=== PATIENT | male | born 1990 | race Hispanic/Latino ===

== ENCOUNTER 2022-05-31 01:29 | Emergency (ER) | payer SELFPAY ==
--- OUTSIDE RECORDS SUMMARY | 2022-05-31 01:32 | XMS REPORT | Continuity of Care Document ---
:1990 Author Organization [facility] t Address [address] [place] [address] Dr. Huerta [address] [place] [id number] Care Team Providers Name Role Phone BRENDA Attending Clinician Unavailable BRENDA Admitting Clinician Unavailable Problems This patient has no known problems. Allergies, Adverse Reactions, Alerts This patient has no known allergies or adverse reactions. Medications This patient has no known medications. Procedures This patient has no known procedures. Encounters Start End Encounter Admission Attending Care Care Encounter Source Date/Time Date/Time Type Type Clinicians Facility Department ID 2021-12-27 2021-12-27 Outpatient [facility] [id number] 02:17:00 02:17:00 _SAVANNAH [id number] [facility] Program Results This patient has no known results.
[2022-05-31] MEDS ORDERED: NA CHLORIDE 0.9% 1,000 ML ONE (01:49)
[2022-05-31] MEDS ORDERED: ASPIRIN EC 81 MG TAB PO ONE (01:49)
[2022-05-31 02:10] LABS: Absolute Lymphocytes (CBC) 2.8 K/uL (0.7-4.9); Hematocrit 42.5 % (39.6-49.0); MCV 88.3 fL (80-100); MPV 7.1 fL (7.6-11.3); RBC Red Blood Cell Count 4.81 M/uL (4.33-5.43)
[2022-05-31 02:18] LABS: Protime INR 0.95
[2022-05-31 02:31] LABS: ALT/SGPT 27 U/L (16-61); AST/SGOT 18 U/L (15-37); Alkaline Phosphatase 79 U/L (45-117); BUN Blood Urea Nitrogen 10 mg/dL (7-18); Bicarbonate 27 mmol/L (21-32); Bilirubin Total 0.3 mg/dL (0.2-1.0); CKMB Creatine Kinase MB 1.3 ng/mL (1.0-3.6); Creatine Phosphokinase 230 U/L (39-308); Glomerular Filtration Rate 101 ml/min (=/>90); Glucose Level 124 mg/dL (74-106); Lipase 174 U/L (73-393); Magnesium 2.1 mg/dL (1.6-2.4); NT PRO-BNP 9 pg/mL (<125); Potassium 3.6 mmol/L (3.5-5.1); Protein, Total 7.7 g/dL (6.4-8.2); Sodium Level 134 mmol/L (136-145); Troponin High Sensitivity 4.3 pg/mL (<58.9)
[2022-05-31 02:43] LABS: Bilirubin Direct < 0.1 mg/dL (0-0.2)
[2022-05-31 04:03] LABS: Urine Blood Negative (Negative); Urine Glucose Negative (Negative); Urine Protein Negative (Negative)
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
[2022-05-31 04:26] LABS: Urine Bacteria None Seen /HPF (<20); Urine RBC None Seen /HPF (None Seen)
[2022-05-31 04:30] VITALS: TEMP 98.5
[2022-05-31 04:32] VITALS: BP 132/87; O2SAT 97
--- NOTE | 2022-05-31 23:26 | RAD REPORT ---
EXAM DESCRIPTION: RAD - Chest Single View - 05/31/2022 2:39 am CLINICAL HISTORY: CHEST PAIN TECHNIQUE: Frontal view of the chest. COMPARISON: No relevant prior studies available. FINDINGS: Lungs: Unremarkable. No consolidation. Pleural space: Unremarkable. No pneumothorax. Heart: Unremarkable. No cardiomegaly. Mediastinum: Unremarkable. Bones/joints: Unremarkable. IMPRESSION: No acute disease. Electronically signed by: Narinder Cortez MD 05/31/2022 3:13 AM METAL HANGING SUPERVISOR Due to temporary technical issues with the PACS/Fluency reporting system, reports are being signed by the in house radiologists without review as a courtesy to insure prompt reporting. The interpreting radiologist is fully responsible for the content of the report.
--- NOTE | 2022-05-31 23:28 | RAD REPORT ---
EXAM DESCRIPTION: CT - Abdomen Pelvis W Contrast - 05/31/2022 6:52 am CLINICAL HISTORY: The patient is 32 years old and is Male; Abdominal pain, acute, nonlocalized TECHNIQUE: Axial computed tomography images of the abdomen and pelvis with intravenous contrast. S agittal and coronal reformatted images were created and reviewed. This CT exam was performed using one or more of the following dose reduction techniques: automated exposure control, adjustment of t he mA and/or kV according to patient size, and/or use of iterative reconstruction technique. COMPARISON: No relevant prior studies available. FINDINGS: LUNG BASES: Bibasilar respiratory motion artifact and dependent subsegmental atelectasi s. ABDOMEN: LIVER: Unremarkable. No mass. GALLBLADDER AND BILE DUCTS: Unremarkable. No calcified stones. No ductal dilation. PANCREAS: Unremarkable. No mass. No ductal dilation. SPLEEN: Unremarkable. No splenomegaly. ADRENALS: Unremarkable. No mass. KIDNEYS AND URETERS: Unremarkable. No solid mass. No hydronephrosis. STOMACH AND BOWEL: Unremarkable. No obstruction. No mucosal thickening. PELVIS: APPENDIX: No findings to suggest acute appendicitis. BLADDER: Unremarkable. No mass. REPRODUCTIVE: Unremarkable as visualized. ABDOMEN and PELVIS: INTRAPERITONEAL SPACE: Unremarkable. No free air. No significant fluid collection. BONES/JOINTS: No acute fracture. No dislocation. SOFT TISSUES: Unremarkable. VASCULATURE: Unremarkable. No abdominal aortic aneurysm. LYMPH NODES: Unremarkable. No enlarged lymph nodes. IMPRESSION: No acute findings in the abdomen or pelvis. Electronically signed by: Gutierrez Castillo MD 05/31/2022 3:58 AM JAVA FRONT END WEB DEVELOPER Due to temporary technical issues with the PACS/Fluency reporting system, reports are being signed by the in house radiologists without review as a courtesy to insure prompt reporting. The interpreting radiologist is fully responsible for the content of the report.
--- NOTE | 2022-06-01 15:52 | EKG ---
Test Date: 2022-05-31 Test Time: 01:53:02 Summer Child Caregiver: MEASUREMENT RESULTS: Intervals: Rate: 77 [place]: 180 QRSD: 112 QT: 368 QTc: 416 [place]: P: 54 [place]: 180 QRS: 82 T: 53 INTERPRETIVE STATEMENTS: Normal sinus rhythm Normal ECG No previous ECG available for comparison Electronically Signed On 06-01-22 15:50:46 NETWORK ADMIN by Nilesh Jhaveri
== END 2022-05-31 04:26 | disposition home or self-care (01) ==
LOC: ER 01:29
DX: R07.9 Chest pain, unspecified (principal); R10.9 Unspecified abdominal pain; T75.4XXA Electrocution, initial encounter
CPT/HCPCS: 36415; 71045; 74177; 80048; 80076; 81003; 81015; 82550; 82553; 83690; 83735; 83880; 84484; 85025; 85610; 93005; 96360; 96361; 99284; J7030; Q9967

== ENCOUNTER 2023-09-28 11:29 | Emergency (ER) | payer SELFPAY ==
--- OUTSIDE RECORDS SUMMARY | 2023-09-28 11:32 | XMS REPORT | Continuity of Care Document ---
Author Name Unknown Address [address] [place] [address] [place] [address] [employer]connect Address [address] [place] [address] [address] [place] [address] Care Team Providers Care Carpet Or Rug Layer Helper Name Role Phone BRENDA Attending Clinician Unavailable BRENDA Admitting Clinician Unavailable Encounters Start Date/Time End Date/Time Encounter Type Admission Type Attending Clinicians Care Facility Care Department Encounter ID Source 2021-12-27 02:17:00 2021-12-27 02:17:00 Outpatient [facility] [id number] [facility] Program
--- NOTE | 2023-09-28 12:15 | RAD REPORT ---
EXAM DESCRIPTION: CT - Head Brain Wo Cont - 09/28/2023 12:06 pm CLINICAL HISTORY: Alteration of awareness/confusion COMPARISON: None TECHNIQUE: Computed axial tomography of the head was obtained. IV contrast was not requested. All CT scans are performed using dose optimization technique as appropriate and may include automated exposure control or mA/KV adjustment according to patient size. FINDINGS: An intracranial bleed is not seen The ventricles are normal in caliber No extra-axial fluid collection is noted. No significant hyperdensity within the brain seen. Cerebellar tonsillar ectopia present. Opacification left maxillary portion of ethmoid sinus consistent sinusitis Fluid within the sinuses/ mastoids is not seen. IMPRESSION: No acute intracranial abnormality is seen If patient's symptoms persist MRI of the brain would be recommended
[2023-09-28 13:21] LABS: Absolute Eosinophils 0.2 K/uL (0-0.5); Absolute Lymphocytes (CBC) 1.9 K/uL (0.7-4.9); Absolute Monocytes 0.5 K/uL (0.1-1.3); Absolute Neutrophil 3.4 K/uL (1.8-8.0); Basophils % 0.7 % (0-1.3); Eosinophils % 2.7 % (0-4.4); Hematocrit 42.3 % (39.6-49.0); Hemoglobin 14.5 g/dL (13.6-17.9); Lymphocytes % 31.7 % (15.3-44.8); MCH 30.3 pg (27.0-35.0); MCHC 34.2 g/dL (32.0-36.0); MCV 88.6 fL (80-100); MPV 7.2 fL (7.6-11.3); Neutrophils % 56.9 % (41.7-73.7); Nucleated Red Blood Cells % 0.2 % (0-0); Platelets 306 thou/uL (152-406); RBC Red Blood Cell Count 4.78 M/uL (4.33-5.43); Red Cell Distribution Width 12.7 % (12.1-15.2)
[2023-09-28 13:25] LABS: PT Prothrombin Time 12.4 SECONDS (9.5-12.5); PTT, Activated Partial Thromb 35.1 SECONDS (24.3-36.9); Protime INR 1.13
[2023-09-28 14:05] LABS: ALT/SGPT 27 U/L (16-61); AST/SGOT 20 U/L (15-37); Albumin/Globulin Ratio 1.1 (1.1-1.8); Alkaline Phosphatase 96 U/L (45-117); Anion Gap 6.7 mEq/L (5.0-15.0); BUN Blood Urea Nitrogen 12 mg/dL (7-18); Bicarbonate 28 mEq/L (21-32); Bilirubin Direct 0.2 mg/dL (0-0.2); Bilirubin Indirect, Calculated 0.6 mg/dL (0.2-0.8); Bilirubin Total 0.8 mg/dL (0.2-1.0); Globulin 3.8 g/dL (2.3-3.5); Glomerular Filtration Rate 104 ml/min (=/>90); Glucose Level 97 mg/dL (74-106); Potassium 3.7 mEq/L (3.5-5.1); Protein, Total 7.8 g/dL (6.4-8.2); Sodium Level 138 mEq/L (136-145)
[2023-09-28 14:45] LABS: Barbiturates NEGATIVE (NEGATIVE); Benzodiazepines NEGATIVE (NEGATIVE); Cocaine NEGATIVE (NEGATIVE); METHAMPHETAM NEGATIVE (NEGATIVE); Methadone NEGATIVE (NEGATIVE); Opiates NEGATIVE (NEGATIVE); Phencyclidine NEGATIVE (NEGATIVE); THC Cannibis POSITIVE (NEGATIVE)
[2023-09-28 14:50] LABS: Specific Gravity 1.017 (1.005-1.030); Sqamous Epithelial None Seen /HPF (None Seen); Urine Bacteria <20 /HPF (<20); Urine Bilirubin NEGATIVE (Negative); Urine Blood Negative (Negative); Urine Clarity Extremely Turbid (Clear); Urine Color Light-Orange (Yellow); Urine Culture Reflex Order NOT NEEDED; Urine Glucose NEGATIVE (Negative); Urine Ketones NEGATIVE (Negative); Urine Microscopic Reflex YN ORDER UMIC; Urine Mucus Slight /HPF (None Seen); Urine Nitrite NEGATIVE (Negative); Urine Protein NEGATIVE (Negative); Urine Urobilinogen Normal (Normal)
[2023-09-28 15:03] LABS: Urine RBC <5 /HPF (None Seen); Urine WBC <5 /HPF (<5)
--- NOTE | 2023-09-28 17:01 | EDPHYS ---
Physician Documentation [facility] Name: Jaylen Hester Jr Age: 33 yrs Sex: Male : 1990 Arrival Date: 09/28/2023 Time: : Bed 17 Private MD: ED Physician Carson Milton HPI: 09/27 11:50 This 33 yrs old Male presents to ER via Ambulatory with complaints of Mental ec2 Health Eval. 11:50 Patient with history of depression arrives today due to concern for deteriorating ec2 status. No thoughts of harming himself or others. Patient reports that he generally feels depressed. Patient reports no substance abuse, not actively thinking of harming self or . Historical: - Allergies: 11:38 No Known Allergies; ll1 - PMHx: 11:44 None; ll1 - PSHx: 11:44 None; ll1 - Immunization history:: Adult Immunizations up to date. - Infectious Disease History:: Denies. - Social history:: Smoking status: Reported history of juuling and/or vaping. ROS: 11:50 Constitutional: as per hpi ec2 Exam: 11:50 Constitutional: GEN: NAD Head: atraumatic Eyes: EOMI Ears: External ears are ec2 normal. CV: regular rate LUNGS: no respiratory distress ABD: non-distended SKIN: no evidence of rashes MSK: no evidence of trauma NEURO: moves all extremities equally, cranial nerves II through XII intact, strength intact and functional, ambulatory without issue. Psych: Flat affect, no thoughts of self-harm or harming anyone else. Cooperative Vital Signs: 11:43 BP 138 / 81; Pulse 64; Resp 17; Temp 97.3; Pulse Ox 98% ; Weight 72.57 kg; Height 5 ft. ll1 7 in. ; Pain 0/10; 14:45 BP 144 / 89; Pulse 68; Resp 18; Pulse Ox 100% on R/A; db 15:30 BP 145 / 84; Pulse 63; Resp 18; Pulse Ox 100% on R/A; db 16:00 BP 135 / 76; Pulse 73; Resp 18; Pulse Ox 99% on R/A; db 16:45 BP 145 / 82; Pulse 68; Resp 18; Temp 97.8(O); Pulse Ox 99% on R/A; db 11:43 Body Mass Index 25.06 (72.57 kg, 170.18 cm) ll1 11:43 Pain Scale: Adult ll1 MDM: 11:50 Patient medically screened. ec2 11:50 Data reviewed: vital signs. ED course: Patient arrives today due to concern for ec2 progression of his general depression. Examination remarkable for well-appearing nontoxic and appears otherwise in no acute distress with reassuring vital signs we will obtain lab work as well as CT imaging to evaluate for correctable issues. Ultimately patient and family want ensure there is nothing acutely causing his symptoms and would like outpatient follow-up resources for psychiatry. . 12:17 ED course: CT scan of the head shows no acute intracranial abnormality. . ec2 13:23 ED course: EKG independently reviewed and interpreted by me, shows normal sinus rhythm, ec2 rate 68, no acute ST segment elevations, nonconcerning intervals.. 14:32 ED course: Labs are unremarkable, will have [facility] evaluate the patient.. ec2 16:59 ED course: [facility] evaluated the patient, feel this patient would be appropriate for ec2 outpatient management. I agree patient does not seem to be an active threat to himself. Patient is cooperative, mother does report that he has had some comments about suicidality however sounds like there is no actual plan. Will discharge home. Return precautions given.. 09/27 11:50 Order name: Acetaminophen; Complete Time: 14:09 ec2 09/27 11:50 Order name: Basic Metabolic Panel; Complete Time: 14:09 ec2 09/27 11:50 Order name: CBC with Diff; Complete Time: 13:47 ec2 09/27 11:50 Order name: ETOH Level; Complete Time: 13:54 ec2 09/27 11:50 Order name: Hepatic Function; Complete Time: 14:09 ec2 09/27 11:50 Order name: PT-INR; Complete Time: 13:47 ec2 09/27 11:50 Order name: Ptt, Activated; Complete Time: 13:47 ec2 09/27 11:50 Order name: Salicylate; Complete Time: 14:31 ec2 09/27 11:50 Order name: Urinalysis w/ reflexes; Complete Time: 15:36 ec2 09/27 11:50 Order name: Urine Drug Screen; Complete Time: 14:46 ec2 09/27 11:50 Order name: CT Head Brain wo Cont; Complete Time: 12:17 ec2 09/27 11:50 Order name: EKG; Complete Time: 11:50 ec2 09/27 11:50 Order name: EKG - Nurse/Tech; Complete Time: 13:18 ec2 09/27 11:50 Order name: IV Saline Lock; Complete Time: 13:05 ec2 09/27 11:50 Order name: Labs collected and sent; Complete Time: 13:05 ec2 09/27 11:50 Order name: Suicide Screening ([place]); Complete Time: 13:18 ec2 Administered Medications: No medications were administered Disposition Summary: 09/28/23 17:00 Discharge Ordered Notes: Location: Home ec2 Condition: Stable ec2 Diagnosis - Brief psychotic disorder ec2 Followup: ec2 - With: Private Physician - When: - Reason: Re-evaluation by your physician Discharge Instructions: - Discharge Summary Sheet ec2 - Psychosis ec2 Forms: - Medication Reconciliation Form ec2 - Thank You Letter ec2 - Antibiotic Education ec2 - Prescription Opioid Use ec2 - Patient Portal Instructions ec2 - Leadership Thank You Letter ec2 Signatures: Dispatcher [employer] Nancy Tucker RN RN ll1 Tangela Butt RN RN db Carson Milton MD MD ec2 Corrections: (The following items were deleted from the chart) 11:50 11:50 ACETAMINOPHEN+C.LAB.BRZ ordered. EDMS EDMS 11:50 11:50 BASIC METABOLIC PANEL+C.LAB.BRZ ordered. EDMS EDMS 11:50 11:50 CBC+H.LAB.BRZ ordered. EDMS EDMS 11:50 11:50 ETHANOL+C.LAB.BRZ ordered. EDMS EDMS 11:50 11:50 HEPATIC FUNCTION+C.LAB.BRZ ordered. EDMS EDMS 11:50 11:50 PROTIME (+INR)+COAG.LAB.BRZ ordered. EDMS EDMS 11:50 11:50 PTT, ACTIVATED+COAG.LAB.BRZ ordered. EDMS EDMS 11:50 11:50 SALICYLATE+C.LAB.BRZ ordered. EDMS EDMS 11:50 11:50 Urinalysis+U.LAB.BRZ ordered. EDMS EDMS 11:50 11:50 URINE DRUG SCREEN+UC.LAB.BRZ ordered. EDMS EDMS
--- NOTE | 2023-09-28 17:01 | ER ---
Nurse's Notes [facility] Name: Jaylen Hester Jr Age: 33 yrs Sex: Male : 1990 Arrival Date: 09/28/2023 Time: : Bed 17 Private MD: Diagnosis: Brief psychotic disorder Presentation: 09/27 11:43 Chief complaint: Patient states: No SI or HI, here for psych evaluation. Coronavirus ll1 screen: Client denies travel out of the [place] in the last 14 days. At this time, the client does not indicate any symptoms associated with coronavirus-19. Ebola Screen: Patient denies travel to an Ebola-affected area in the 21 days before illness onset. Initial Sepsis Screen: Does the patient meet any 2 criteria? No. Patient's initial sepsis screen is negative. Does the patient have a suspected source of infection? No. Patient's initial sepsis screen is negative. Risk Assessment: Do you want to hurt yourself or someone else? Patient reports no desire to harm self or others. Onset of symptoms is unknown. 11:43 Method Of Arrival: Ambulatory ll1 11:43 Acuity: ARTEM 3 ll1 Triage Assessment: 11:43 General: Appears uncomfortable, Behavior is calm, cooperative, appropriate for age. db General: Reports "ISOLATION" DENIES SI/HI STILL. Pain: Denies pain. Historical: - Allergies: 11:38 No Known Allergies; ll1 - PMHx: 11:44 None; ll1 - PSHx: 11:44 None; ll1 - Immunization history:: Adult Immunizations up to date. - Infectious Disease History:: Denies. - Social history:: Smoking status: Reported history of juuling and/or vaping. Screenin:17 [facility] ED Fall Risk Assessment (Adult) History of falling in the last 3 months, db including since admission No falls in past 3 months (0 pts) Confusion or Disorientation No (0 pts) Intoxicated or Sedated No (0 pts) Impaired Gait No (0 pts) Mobility Assist Device Used No (0 pt) Altered Elimination No (0 pt) Score/Fall Risk Level 0 - 2 = Low Risk Oriented to surroundings, Maintained a safe environment. Abuse screen: Denies threats or abuse. Denies injuries from another. Nutritional screening: No deficits noted. Tuberculosis screening: No symptoms or risk factors identified. Assessment: 13:11 Reassessment: No changes from previously documented assessment. Patient and/or family db updated on plan of care and expected duration. Pain level reassessed. Patient is alert, oriented x 3, equal unlabored respirations, skin warm/dry/pink. 13:56 Reassessment: PATIENT AMBULATORY TO RESTROOM. db 15:00 Reassessment: Patient appears in no apparent distress at this time. Patient and/or db family updated on plan of care and expected duration. Pain level reassessed. Patient is alert, oriented x 3, equal unlabored respirations, skin warm/dry/pink. General: Appears in no apparent distress. comfortable, Behavior is calm, cooperative. 16:00 Reassessment: Patient appears in no apparent distress at this time. Patient and/or db family updated on plan of care and expected duration. Pain level reassessed. Patient is alert, oriented x 3, equal unlabored respirations, skin warm/dry/pink. General: Appears in no apparent distress. comfortable, Behavior is calm, cooperative. Neuro: Level of Consciousness is awake, alert, obeys commands, Oriented to person, place, time, situation. Respiratory: No deficits noted. Airway is patent Respiratory effort is even, unlabored, Respiratory pattern is regular, symmetrical. 16:15 Reassessment: [facility] IS HERE FOR PATIENT EVALUATION. db 17:14 Reassessment: Patient appears in no apparent distress at this time. Patient states db feeling better. Patient states symptoms have improved. Vital Signs: 11:43 BP 138 / 81; Pulse 64; Resp 17; Temp 97.3; Pulse Ox 98% ; Weight 72.57 kg; Height 5 ft. ll1 7 in. ; Pain 0/10; 14:45 BP 144 / 89; Pulse 68; Resp 18; Pulse Ox 100% on R/A; db 15:30 BP 145 / 84; Pulse 63; Resp 18; Pulse Ox 100% on R/A; db 16:00 BP 135 / 76; Pulse 73; Resp 18; Pulse Ox 99% on R/A; db 16:45 BP 145 / 82; Pulse 68; Resp 18; Temp 97.8(O); Pulse Ox 99% on R/A; db 11:43 Body Mass Index 25.06 (72.57 kg, 170.18 cm) ll1 11:43 Pain Scale: Adult ll1 ED Course: 11:32 Patient arrived in ED. im 11:32 Carson Milton MD is Attending Physician. ec2 11:37 Arm band placed on. ll1 11:44 Triage completed. ll1 12:06 CT Head Brain wo Cont In Process Unspecified. EDMS 13:08 Initial lab(s) drawn, by me, sent to lab. ll1 13:11 Inserted saline lock: 20 gauge in right antecubital area, using aseptic technique. db Blood collected. 13:55 Tangela Butt, RN is Primary Nurse. db 14:50 spoke johnathan Bui at [facility]. for consultation. bc6 15:15 spoke with Charito coming from [place] [facility], given an ETA of about 45 minutes. bc6 17:14 Patient has correct armband on for positive identification. Bed in low position. Call db light in reach. Side rails up X 1. Provided Education on: DISCHARGE AND HEALTH. Pulse ox on. NIBP on. Warm blanket given. 17:14 No provider procedures requiring assistance completed. IV discontinued, intact, db bleeding controlled, No redness/swelling at site. Administered Medications: No medications were administered Medication: 17:01 VIS not applicable for this client. db Outcome: 17:00 Discharge ordered by . ec2 17:14 Discharged to home ambulatory, with family, db 17:14 Condition: stable 17:14 Discharge instructions given to patient, Instructed on discharge instructions, follow up and referral plans. 17:16 Patient left the ED. db Signatures: Dispatcher [employer] HINACO Nancy Myers RN RN 1 Tangela Butt, RN RN db Ying Joseph 6 Beth Jones Carson Milton MD MD ec2
[2023-09-28 19:46] VITALS: BP 145/82; TEMP 97.8; O2SAT 99
== END 2023-09-28 17:16 | disposition home or self-care (01) ==
LOC: ER 11:29
DX: F23 Brief psychotic disorder (principal)
CPT/HCPCS: 36415; 70450; 80048; 80076; 80143; 80179; 80307; 81001; 82077; 85025; 85610; 85730; 93005; 99284